=== PATIENT | male | born 1980 | race Caucasian/White ===

== ENCOUNTER 2023-11-02 00:37 | Emergency (ER) | payer OTHER ==
[2023-11-02 00:53] VITALS: BP 144/88; O2SAT 98
--- NOTE | 2023-11-02 01:58 | ED Physician Documentation ---
History of Present Illness - Stated complaint Stated Complaint: HAND NUMBNESS/ L SHOULDER PX - Chief complaint Chief Complaint: Trauma Ext - History obtained from History obtained from: Patient - Additonal information Additional information: 43yM p/w L shoulder pain, L hand pain and numbness intermittent for over a month, worse over the past couple days. pain radiates from the L shoulder downward. He thinks he exacerbated it after twisting unnaturally the other day. denies specific trauma. denies neck pain. PD PAST MEDICAL HISTORY - Present Medications Home Medications: Ambulatory Orders Medication Instructions Recorded Confirmed Cyclobenzaprine [Flexeril] 10 mg PO TID PRN 6 Days #20 tablet 11/02/23 - Allergies Allergies/Adverse Reactions: Allergies Allergy/AdvReac Type Severity Reaction Status Date / Time Penicillins Allergy Rash Verified 11/02/23 00:46 PD ED PE NORMAL - Vitals Vital signs reviewed: Yes - General General: Alert and oriented X 3, No acute distress, Well developed/nourished - HEENT HEENT: Atraumatic, PERRL, EOMI - Neck Neck: Supple, no meningeal sign, No bony TTP, Other (L lateral neck and posterior shoulder region ttp with tensed, activated L trapezius muscle) - Cardiac Cardiac: RRR - Respiratory Respiratory: No respiratory distress, Clear bilaterally - Back Back: No spinal TTP - Derm Derm: Normal color, Warm and dry - Extremities Extremities: Other (BL UE csm intact. normal L radial pulse, cap refill, sensation and strength) Results - Vitals Vitals: Vital Signs - 24 hr 11/02/23 00:47 Temperature 36.5 C Heart Rate 83 Respiratory 16 Rate Blood Pressure 144/88 H O2 Saturation 98 Oxygen O2 Source Room air PD Medical Decision Making - ED course ED course: 43yM p/w L shoulder pain radiating to the hand X >1 month, worse over the past couple days and keeping him awake tonight. Appears to be muscle strain/spasm rather than nerve root issue. patient was provided with IM toradol with relief as well as flexeril prepack and prescription. return precautions given. plan to f/u outpatient with a pcp. symptomatic care discussed. Departure - Departure Disposition: 01 Home, Self Care Clinical Impression: Muscle strain Condition: Stable Prescriptions: Cyclobenzaprine [Flexeril] 10 mg PO TID PRN 6 Days #20 tablet PRN Reason: Spasms Comments: You were seen in the emergency department for medical evaluation. Prescriptions were sent electronically to your pharmacy. You can also consider following up with complementary medicine practitioners, many of which are available on the [place]. You can browse on [email or web address]. I personally recommend Naomi Pineda, a craniosacral therapist located in [place] who specifically provides LGBTQ+ affirming care. Naomi Pineda LMT, CCST [email or web address] Please follow-up with your primary care provider and return to the emergency department if you have any new or worsening symptoms or other concerns. Forms: PCP List, Activity restrictions
[2023-11-02] MEDS: KETOROLAC 30 MG/ML VIAL IM STA (02:07)
[2023-11-02] MEDS: CYCLOBENZAPRINE 10 MG Prepack 2 PO PRN (02:08)
== END 2023-11-02 02:17 | disposition home or self-care (01) ==
LOC: ED 00:37
DX: S46.912A Strain of unspecified muscle, fascia and tendon at shoulder and upper arm level, left arm, initial encounter (principal); X50.1XXA Overexertion from prolonged static or awkward postures, initial encounter
CPT/HCPCS: 96372; 99283; 99284